=== PATIENT | male | born 2000 | race Caucasian/White ===

== ENCOUNTER 2022-04-11 11:53 | Emergency (ER) | payer OTHER ==
[~2022-04-11] VITALS: Ht 195.5 cm; Wt 77.1 kg
[2022-04-11 12:05] VITALS: BP 141/95
--- NOTE | 2022-04-11 13:04 | ED Integumentary General ---
General Chief Complaint: Laceration Stated Complaint: FOREHEAD LAC Source: patient Exam Limitations: no limitations History of Present Illness Date Seen by Provider: Apr 11, 2022 Time Seen by Provider: 13:02 Physical Exam Vital Signs Capillary Refill : Departure Impression Primary Impression: Forehead laceration Disposition: HOME, SELF-CARE Condition: Improved Departure-Patient Inst. Decision time for Depature: 13:02 Referrals: NO,LOCAL PHYSICIAN (PCP/Family) Primary Care Physician Patient Instructions: Laceration Repair With Glue ED Add. Discharge Instructions: Plan: 1. Tylenol or Ibuprofen as needed for pain per package. 2. Allow glue to stay in place for 7-10 days for optimal healing. 3. Monitor for signs of infection: redness, swelling pain. Return or follow up with your doctor if symptoms develop. 4. Return if you have vision changes, headache, nausea, vomiting, or any other new or concerning symptoms. 5. Avoid swimming or soaking area until glue is off. Do not pick or pull edges. You can trim gently with scissors. All discharge instructions reviewed with patient and/or family. Voiced understanding. LAYA MARTINEZ ROLL TENDER Apr 11, 2022 13:04
== END 2022-04-11 13:29 | disposition home or self-care (01) ==
LOC: ER 11:56
DX: S01.81XA Laceration without foreign body of other part of head, initial encounter (principal); X58.XXXA Exposure to other specified factors, initial encounter